=== PATIENT | male | born 1995 | race Caucasian/White ===

== ENCOUNTER 2017-12-08 04:00 | Emergency (ER) | payer SELFPAY ==
[2017-12-08] VITALS (15 sets, daily range): BP systolic 103–128; BP diastolic 56–78; PULSE 56–83; RESP 13–22; TEMP 36.7–36.8; O2SAT 96–100; BMI 29.1
--- NOTE | 2017-12-08 04:03 | ED.VISSUMM ---
- ER Visit Summary Date of Service: 12/08/17 Chief Complaint: Suicidal thoughts History of Present Illness: The patient is a 22 M presents to the emergency department with police for suicidal thoughts. Patient is very vague about the details. Most of the history is gathered from the [employer] police at the bedside. Apparently, he got a verbal altercation with his girlfriend armando. He had sent his sister text messages making threats about suicide. He apparently said that he was going to jump off a bridge. The police were able to find him near a bridge. He did agree to come in, but states I am not giving you anything. He states I just got a centimeter to the psych anne again?. He states he has had prior suicide attempt before. Per [employer] police, family was concerned that he had been abusing methamphetamines. Physical Examination: Vital signs reviewed General: Well-nourished, well-developed, agitated Head: Normocephalic, atraumatic Eyes: Pupils equal and reactive, extraocular muscles intact Neck, supple, no lymphadenopathy Heart: Regular rate and rhythm Respiratory: No distress, clear bilaterally Abdomen: Soft, nontender, nondistended, no peritoneal signs Back: Nontender Extremities: Nontender, no edema, no cords Skin: Normal color no rash Neuro: Patient is hyper alert and agitated, making threatening statements, does admit to suicidal thoughts, Test Results: [] Emergency Department Course and Treatment: The patient presents agitated and suicidal. He was given Haldol, Benadryl, and Ativan. He was much more calm. Psychiatric screening labs were obtained. Labs were unremarkable. His tox is positive for amphetamines, methamphetamines, and THC. His alcohol is negative. The patient will undergo crisis evaluation. Disposition is currently pending. Treatment Plan: [] Disposition: Pending Impression: 1. Suicidal ideation This note was generated with [employer] dictation software. It may contain incorrect words, spelling, and punctuation that were not noted in review of the chart prior to signing ED Disposition - Plan for ED Patient: Chief Complaint: Suicidal Referrals: Sierra Locke MD [Primary Care Provider] -
[2017-12-08] MEDS: DiphenhydrAMINE 50 MG/ML Syringe IM (04:15)
[2017-12-08] MEDS: LORazepam 2 MG/ML Syringe IM (04:15)
[2017-12-08 04:22] LABS: Basophil# 0.02 X10^3/uL; Basophil% 0.3 % (0-1); Eosinophil# 0.24 X10^3/uL; Eosinophils% 3.2 % (0-5); Hematocrit 47.1 % (40-54); Hemoglobin 16.6 g/dl (13.0-16.5); Lymphocyte % 30.6 % (19-41); Mean Corp Hgb Conc 35.2 g/gl (32-36); Mean Corpuscular Volume 90.8 fL (80-94); Mean Platelet Vol. 11.1 fl (6.2-12.0); Monocyte# 0.96 X10^3/uL; Monocyte% 12.8 % (0-10); Neutrophil # 3.99 X10^3/uL (2.7-7.7); Platelet Count 305 K/mm3 (150-450); RBC Distribution Width CV 13.4 % (11.6-14.6); RBC Distribution Width SD 45.1 fl (35.1-43.9); Red Blood Count 5.19 M/mm3 (4.6-6.2); White Blood Count 7.5 K/mm3 (4.4-11.0)
[2017-12-08 04:23] LABS: POSITIVE COUNT NO; POSITIVE DIFFERENTIAL NO
[2017-12-08 04:24] LABS: POSITIVE MORPHOLOGY NO
[2017-12-08] MEDS: Haloperidol 5 MG Tablet 10 MG PO (04:31)
[2017-12-08 04:48] LABS: ALB/GLOB Ratio 1.3 RATIO (0.9-2.4); AST(SGOT) 16 U/L (15-37); Alanine Aminotransfer ALT/SGPT 23 U/L (16-61); Albumin, Serum 4.1 g/dL (3.2-5.0); Alkaline Phosphatase 60 U/L (45-117); Anion Gap 9 (5-15); BUN 12 mg/dL (7-18); BUN/Creat Ratio 10.8 RATIO (10-20); Calcium,Total 8.8 mg/dL (8.5-10.1); Chloride 108 mmol/L (98-107); Creatinine, Serum 1.11 mg/dL (0.70-1.30); EST Glomerular Filtration Rate 89 mL/min (>60); Est Glom Filt Rate - Afr Amer 108 mL/min (>60); Globulin 3.1 g/dL (2.2-4.2); Glucose 106 mg/dL (74-106); Potassium 4.1 mmol/L (3.5-5.1); Protein, Total 7.2 g/dL (6.4-8.2); Sodium Level 141 mmol/L (136-145)
[2017-12-08 05:16] LABS: Amphetamine Urine VISTA POSITIVE (<1000 ng/mL); Barbiturate Urine VISTA NEGATIVE (< 200 ng/mL); Benzodiazepine Urine VISTA NEGATIVE (< 200 ng/mL); Cocaine Urine VISTA NEGATIVE (< 300 ng/mL); Ecstacy Urine VISTA POSITIVE (< 500 ng/mL); Methadone Urine VISTA NEGATIVE (< 300 ng/mL); PCP Urine VISTA NEGATIVE (< 25 ng/mL); THC Urine VISTA POSITIVE (< 50 ng/mL); Vista UDS pH Range 5
--- NOTE | 2017-12-08 05:59 | ED.RN ---
[facility]ED [facility]. GENERAL PRACTICE STATED SHE WILL LET MISSAEL KNOW PT NEEDS TO BE SEEN.
--- NOTE | 2017-12-08 06:05 | ED.RN ---
[facility] STATES THEY WILL BE HERE TO SEE PT SOMETIME AFTER 8AM.
--- NOTE | 2017-12-08 06:30 | ED.RN ---
MONTY ORDOÑEZ IS AT THE BEDSIDE A SITTER. PATIENT HAS BEEN SLEEPING SINCE MEDICATIONS WERE GIVEN. ALL OF HIS LABS ARE BACK AND, [facility] HAS BEEN CALLED BUT CAN NOT COME TILL LATER IN THE MORNING.
--- NOTE | 2017-12-08 12:32 | EKG12_ITS ---
Test Reason : [facility] [place] Pressure : / mmHG Vent. Rate : 066 BPM Atrial Rate : 066 BPM P-R Int : 128 ms QRS Dur : 084 ms QT Int : 390 ms P-R-T Axes : 062 051 055 degrees QTc Int : 408 ms Sinus rhythm with marked sinus arrhythmia Otherwise normal ECG Confirmed by REMINGTON MAY, MITCH ([id number]), general expeditor AMANDA [place] ([id number]) on 12/12/2017 3:06:17 PM Referred By: DARIN Confirmed By:MITCH MACEDO MD
--- NOTE | 2017-12-08 14:42 | ED.RN ---
PER CRISIS; PT IS BEING EVALUATED BY [facility] AT THIS TIME
--- NOTE | 2017-12-08 21:22 | ED.RN ---
[facility] CALLED WITH ACCEPTANCE AND GAVE ALL ACCEPTING INFO. THEY STATED PATIENT COULD BE TRANSFERRED TO THEM AT 2330.
--- NOTE | 2017-12-08 21:57 | ED.RN ---
CALLED [facility] TO SET UP TRANSPORT FOR 2300. [facility] DISPATCHER TOOK ALL INFORMATION AND THEY WILL BE HERE AT 2300 TO TRANSPORT PATIENT TO [facility].
== END 2017-12-08 23:11 ==
PROVIDERS: Emergency Provider Emergency Medicine; Family Provider Pediatrics; PCP Pediatrics
DX: F32.9 Major depressive disorder, single episode, unspecified (principal); R45.851 Suicidal ideations; R45.1 Restlessness and agitation; Z72.0 Tobacco use; Z91.5 Personal history of self-harm
CPT/HCPCS: 80053; 80307; 80320; 85025; 93005; 96372; 99285; G0480

== ENCOUNTER 2018-11-10 17:25 | Emergency (ER) | payer SELFPAY ==
[2018-11-10 17:27] VITALS: BP 144/87; PULSE 122; RESP 18; TEMP 37.3; O2SAT 97; BMI 29.0
--- NOTE | 2018-11-10 18:11 | ED.VISSUMM ---
- ER Visit Summary Date of Service: 11/10/18 Chief Complaint: Dental pain History of Present Illness: The patient is a 23 M who presents with right lower dental pain that is been getting worse over the past 2 to 3 months. Patient states he was unable to see a dentist due to insurance reasons. Patient states he was able to pop to abscesses in his mouth. Patient describes the pain is stabbing. Patient states pain is over the right lower third molar. Patient states his pain is worse with chewing. Patient denies any fevers or chills. Also, the patient states his girlfriend tested positive for chlamydia recently. Patient would like to be tested or treated for STDs. Physical Examination: Vital signs are stable. Patient is afebrile. Patient is in no acute distress. Oral mucosa is pink and moist. There is edema over the right lower third molar. There is a dental carry noted over this tooth. There is no sublingual edema or erythema. Oral pharynx is clear. Neck is supple. Trachea is midline. There is no JVD noted. Heart was regular rate and rhythm. Lungs are clear and equal bilaterally. Abdomen is soft and nontender. Emergency Department Course and Treatment: Patient was given a dose of Rocephin and Zithromax here for STD treatment. Patient was given a prescription for Pen-Vee K for treatment of his dental abscess. Patient was instructed to follow-up with a dentist in 5 to 7 days. Patient understood and was agreeable with the plan. All questions were answered. Disposition: Discharge home Impression: 1. Dental abscess 2. STD exposure This note was generated with [employer] dictation software. It may contain incorrect words, spelling, and punctuation that were not noted in review of the chart prior to signing ED Disposition - Plan for ED Patient: Disposition: Home or Assisted Living Diagnosis: Dental abscess, STD exposure Instructions: Dental Abscess Prescriptions: Penicillin V Potassium 500 mg PO 4X/DAY #40 tab Prescription Printed Referrals: Care Physician,No Primary [Primary Care Provider] - Additional Instructions: Follow-up with a dentist in 5 to 7 days for treatment of your dental cavities
[2018-11-10] MEDS: Azithromycin 250 MG Tablet 1000 MG PO (18:45)
[2018-11-10] MEDS: Ceftriaxone 500 MG Vial 250 MG IM (18:45)
[2018-11-10 18:48] VITALS: BP 139/91; PULSE 88; RESP 16; O2SAT 98
== END 2018-11-10 19:11 | disposition home or self-care (01) ==
PROVIDERS: Emergency Provider Emergency Medicine
DX: K04.7 Periapical abscess without sinus (principal); Z20.2 Contact with and (suspected) exposure to infections with a predominantly sexual mode of transmission; Z72.0 Tobacco use
CPT/HCPCS: 96372; 99282

== ENCOUNTER 2019-04-25 21:03 | Emergency (ER) | payer MEDICAID, SELFPAY ==
[2019-04-25 21:04] VITALS: BP 152/91; PULSE 89; RESP 18; TEMP 36.9; O2SAT 99; BMI 34.0
--- NOTE | 2019-04-25 22:28 | ED.VIS.GEN ---
History of Present Illness Chief Complaint: Dental Informant: Patient Narrative: Patient presents with left upper molar pain. He tells me that this tooth has been broken. He has an appointment next week if he will start splint to see dentistry. He states that the pain is been increasing and he is worried about infection. He notes some swelling along the gums. No fevers. He is a smoker and has been able to smoke with this broken tooth. Past Medical History - Allergies and Home Meds Allergies/Adverse Reactions: Allergies No Known Allergies Allergy (Verified 04/25/19 21:05) Primary Care Physician: Care Physician,No Primary [Primary Care Provider] - Smoking Status: Current every day smoker Review of Systems General: Denies: Chills, Fever, Sweats Eyes: Denies: Visual changes - bilaterally, Diplopia ENT: Reports: - - Dental pain. Denies: Rhinorrhea, Sore throat Cardiovascular: Denies: Chest pain, Palpitations Respiratory: Denies: Dyspnea, Cough, Dyspnea on exertion Gastrointestinal: Denies: Abdominal pain, Nausea, Vomiting, Diarrhea, Melena, Hematochezia Genitourinary: Denies: Dysuria, Hematuria, Frequency Musculoskeletal: Denies: Back pain, Extremity Pain Skin: Denies: Rash, Wounds Neurological: Denies: Headache, Weakness, Numbness Physical Exam Vital Signs/Narrative: Vital Signs Temp Pulse Resp BP Pulse Ox 04/25/19 21:04 98.4 F 89 18 152/91 H 99 Inital Vital Signs reviewed: Yes General: Well nourished, Well developed, No Acute Distress Head: Normocephalic, Atraumatic Eyes: Perrl, EOMI ENT: Moist mucous membranes, No rhinorrhea, - - Left upper molar #15 is broken. The anterior half remains. There is some mild swelling along the gumline. No fluctuance or obvious drainable abscess. There is no overlying facial erythema or swelling. Neck: Supple, Nontender Cardiovascular: Regular rate, Regular rhythm, No murmurs Respiratory: No distress, CTA bilaterally, Chest nontender Abdomen: Soft, Nontender, Nondistended, Normal bowel sounds Back: Nontender, Normal Inspection Extremities: Nontender, No edema Skin: Normal color, No rash Neurological: Alert, Oriented x3, Cranial nerves II-XII grossly intact, Normal Strength, Normal Sensation Psychological: Normal affect, Normal Mood Diagnostic/Tx/Re-eval - Medical Decision Making Patient was started on penicillin. Anti-inflammatories for pain. Follow-up with dentistry. ED Disposition - Plan for ED Patient: Disposition: Home or Assisted Living Diagnosis: Dental abscess Instructions: Dental Abscess Prescriptions: Ibuprofen [Motrin] 800 mg PO TID PRN PRN #20 tab PRN Reason: pain Prescription Printed Penicillin V Potassium 500 mg PO 4X/DAY #40 tab Prescription Printed Referrals: Sienna Stark [NON-STAFF] - Keep Alyssa appointment
[2019-04-25] MEDS: Penicillin Vk 250 MG Tablet 500 MG PO (22:43)
[2019-04-25 22:45] VITALS: BP 148/79; PULSE 85; RESP 16; O2SAT 99
== END 2019-04-25 22:45 | disposition home or self-care (01) ==
PROVIDERS: Emergency Provider Emergency Medicine
DX: K04.7 Periapical abscess without sinus (principal); S02.5XXA Fracture of tooth (traumatic), initial encounter for closed fracture; X58.XXXA Exposure to other specified factors, initial encounter; Y93.9 Activity, unspecified; Y92.9 Unspecified place or not applicable; Y99.9 Unspecified external cause status; F17.200 Nicotine dependence, unspecified, uncomplicated
CPT/HCPCS: 99282

== ENCOUNTER 2019-11-02 20:10 | Emergency (ER) | payer MEDICAID, SELFPAY ==
[2019-11-02 20:11] VITALS: BP 126/86; PULSE 102; RESP 18; TEMP 36.7; O2SAT 97; BMI 30.5
--- NOTE | 2019-11-02 20:33 | ED.VIS.GEN ---
History of Present Illness Chief Complaint: Abd Pain Onset: Days - Days ago Context: Sudden Onset Timing: Continuous Quality: Aching and sense of fullness Location: Generalized Current Severity: Mild Maximum Severity: Moderate Worsened by: Nothing specific Relieved by: Nothing Associated Symptoms: Nausea and diarrhea 3-4 watery stools per day Narrative: Patient is a 24-year-old male presents with generalized aching discomfort with nausea and diarrhea. Onset 3 days ago. Is having 3-4 watery stools a day. No ill contacts. No blood or mucus in the stool. Significant other states he has a fetid to sulfur smell to his burps. She is not ill. He has not eaten anything that did not taste normal to him. He denies fever or chills. He does complain of thirst. He denies cardiac respiratory symptoms. He denies decreased urine output. He does report aches. He is not immune suppressed. He does smoke approximately 1/2 pack/day. Denies alcohol use or drug use. Prior similar symptoms: No Recent Illness/Hospitalization: No - Past Medical History (1) No significant past medical history Status: Acute Past Medical History - Allergies and Home Meds Allergies/Adverse Reactions: Allergies No Known Allergies Allergy (Verified 11/02/19 20:13) Primary Care Physician: Akash Rosenberg DO [Primary Care Provider] - Prior records reviewed: No Past Medical History: None Surgical History: no surgical history Lives: Spouse/ Significant Other Smoking Status: Current every day smoker Alcohol: None Drugs: None Review of Systems General: Denies: Chills, Fever, Sweats Eyes: Denies: Visual changes - bilaterally, Blurred Vision - bilaterally ENT: Denies: Rhinorrhea, Sore throat Cardiovascular: Denies: Chest pain, Palpitations Respiratory: Denies: Dyspnea, Cough, Dyspnea on exertion Gastrointestinal: Reports: Abdominal pain, Nausea, Diarrhea. Denies: Vomiting, Constipation, Melena, Hematochezia, -, - Genitourinary: Denies: Dysuria, Hematuria, Frequency Musculoskeletal: Reports: Myalgias. Denies: Arthralgias, Neck pain, Back pain, Swelling, Extremity Pain Skin: Denies: Rash, Wounds Neurological: Denies: Headache, Weakness, Numbness Physical Exam Vital Signs/Narrative: Vital Signs Temp Pulse Resp BP Pulse Ox 11/02/19 20:11 98.1 F 102 H 18 126/86 H 97 Inital Vital Signs reviewed: Yes General: Well nourished, Well developed, No Acute Distress Head: Normocephalic, Atraumatic Eyes: Perrl, EOMI. Negative for: Pale conjunctiva, Scleral icterus ENT: No rhinorrhea, Dry mucous membranes Neck: Supple, Nontender Cardiovascular: Regular rate, Regular rhythm, No murmurs, Normal S1, Normal S2 Respiratory: No distress, CTA bilaterally, Chest nontender Abdomen: Soft, Normal bowel sounds, Tender, Hypoactive bowel sounds. Negative for: Nondistended, Guarding, Rebound tenderness, Hepatomegaly, Splenomegaly, Mass, Pulsatile mass, Ventral hernia, Inguinal hernia Rectal: Deferred Back: Nontender, Normal Inspection Extremities: Nontender, No edema Skin: Normal color, No rash Neurological: Alert, Oriented x3, Cranial nerves II-XII grossly intact, Normal Strength, Normal Sensation Psychological: Normal affect, Normal Mood Diagnostic/Tx/Re-eval - Medical Decision Making Patient is mildly dehydrated secondary diarrhea. IV fluids were administered. He received 4 mg of Zofran for his nausea. Will treat his discomfort with Bentyl and Imodium for his diarrhea. Patient did receive Imodium and Bentyl. He has had no vomiting or diarrhea in the department. He has passed p.o. challenge. He will be discharged home. ED Disposition - Plan for ED Patient: Disposition: Home or Assisted Living Diagnosis: Gastroenteritis, Mild dehydration Instructions: ED Vomiting and Diarrhea Nonspecific Adult Prescriptions: Dicyclomine HCl [Bentyl] 20 mg PO TIDAC #20 cap Transmission Status: Pending to [facility] #30 Ondansetron [Zofran Odt] 4 mg PO Q8H PRN PRN #10 tab PRN Reason: Nausea Transmission Status: Pending to [facility] #30 Referrals: Akash Rosenberg, [Primary Care Provider] - 3-5 Days if not improving
[2019-11-02] MEDS: 0.9% Normal Saline 1,000 ML 1000 ML IV (20:40)
[2019-11-02] MEDS: Ondansetron 4 MG/2 ML Vial IV (20:40)
[2019-11-02] MEDS: Dicyclomine 10 MG Capsule 20 MG PO (20:48)
[2019-11-02] MEDS: Loperamide 2 MG Capsule 4 MG PO (20:48)
[2019-11-02 22:10] VITALS: RESP 18
== END 2019-11-02 22:10 | disposition home or self-care (01) ==
PROVIDERS: Emergency Provider Emergency Medicine; PCP Family Medicine
DX: K52.9 Noninfective gastroenteritis and colitis, unspecified (principal); E86.0 Dehydration; F17.200 Nicotine dependence, unspecified, uncomplicated; Z79.899 Other long term (current) drug therapy
CPT/HCPCS: 96361; 96374; 99284; J7030; A4216; J2405